=== PATIENT | female | born 1965 | race Caucasian/White ===

== ENCOUNTER 2016-12-10 03:41 | Emergency (ER) | payer OTHER ==
[~2016-12-10] VITALS: Ht 154.9 cm; Wt 83.6 kg
[2016-12-10 03:48] VITALS: BP 168/95; PULSE 71; RESP 18; O2SAT 99
[2016-12-10 04:08] VITALS: BP 154/94; PULSE 69; RESP 17; O2SAT 97
--- NOTE | 2016-12-10 04:13 | ED.REPORT ---
HPI-Headache Date of Service Dec 10, 2016 ED Provider: Dr. Deniz Burciaga MD A 51 year old female with a history of migraines presents to the ED with a headache onset 2 days ago. She reports recently taking ibuprofen for left arm pain and has been experiencing abdominal discomfort, nausea and vomiting since taking the medication. The patient also reports numbness in her left fingertips. She denies any rash, visual disturbances, confusion, slurred speech or neck stiffness. Patient denies any recent head injuries. Nursing Notes Stated Complaint: HEADACHE Chief Complaint: General Complaint Nursing Notes Reviewed: Yes Allergies: Coded Allergies: No Known Allergies (Verified Allergy, Unknown, 12/10/16) Scheduled PRN Aspirin/Acetaminophen/Caffeine (Mwwqcpg-Nnnveaknugkxt-Prqg Tab) 250 Mg-250 Mg- 65 Mg Tablet 2 TAB PO stat PRN PRN migraine Prochlorperazine Maleate (Compazine Suppository) 25 Mg Supp.rect 25 MG RC Q8 PRN PRN For Nausea/Vomiting General Time Seen by MD: 04:12 Chief Complaint Headache Hx Obtained From: Patient Arrived By: Walk-in Sudden in Onset?: No Onset Occurred: 2 days ago Symptom Duration: Since onset Location: : Generalized Quality: Aching Radiation: : Does not radiate Severity: Current: Mild Severity: Maximum: Moderate Associated with: Reports: Nausea, Numbness, Vomiting, Denies: Confusion, Difficulty speaking, Visual disturbance Pertinent Negative: Pt denies other symptoms Recent Healthcare: No recent doctor visit, No recent hospitalization Risk-Headache )( SAH Risk Stratification RF Statements: Risk factors reviewed )( IC Mass Risk Stratification RF Statements: Risk factors reviewed Past Medical History Past Medical History 1. Asthma 2. Cellulitis 3. Migraines Past Surgical History None reported Family History Noncontributory Smoking History Never Smoker Social History Alcohol Use: In recovery Drug Use: Denies drug use Other Social History: Local resident Occupation Fish processing and crab processing Ambulatory Status Independent Review of Systems GI: Reports: Abdominal pain, Nausea, Vomiting Musculoskeletal: Denies: Neck pain Skin: Denies Rash Neurologic: Reports: Headache, Numbness, Denies: Confusion, Slurred speech, Vision change Complete sys rev & neg: except as marked. Physical Exam Initial Vital Signs Vital Signs (First) Date Time Temp Pulse Resp B/P Pulse Ox O2 Delivery O2 Flow Rate FiO2 12/10/16 03:48 36.6 71 18 168/95 99 Room Air Initial VS: Reviewed Extremities: Vascular intact, Neuro intact, No swelling, No tenderness Skin: Warm, Dry, No cyanosis General/Constitutional: Awake, Alert, No acute distress Head / Eyes: Atraumatic, Normocephalic, PERRL, EOMI, No photophobia Neck: Atraumatic, Supple, Full range of motion, Non-tender Neurologic: Oriented X3, Speech NL, No motor deficits, No sensory deficits, CN II - XII intact, Reflexes equal bilat ENT: Atraumatic, Airway patent, Mucous membranes moist, Pharynx NL Right Ear / Mastoid: Positive: Fluid behind TM clear, Tympanic memb retracted, Negative: Tympanic membrane red Left Ear / Mastoid: Positive: Fluid behind TM clear, Tympanic memb retracted, Negative: Tympanic membrane red ENT: TM's congested without signs of infection Respiratory / Chest: Atraumatic, Breath sounds NL, Breath sounds = bilat, No respiratory distress Cardiovascular: Heart rate NL, Regular rhythm, Heart sounds NL Abdomen: Atraumatic, Soft Abnormal Mood/Affect: Positive: Flat affect Abnormal Thinking / Perception: Positive: Tangential thinking Re-Eval/Medical Decision Med Decision/Clinical Course 51-year-old with history of asthma and migraines presents with a migraine now for three days. No other concerning additional symptoms. This one is a stereotypical headache for her. No head impact, no fever, no neurological deficits. Minor tingling is been chronic and intermittent and not related to tonight's headache. Improved after standard cocktail here. She is quite somatically focused and anxious requesting numerous additional elements to exam. No other significant findings than some moderate congestion of her TMs bilaterally, some moderate nasal discharge, and clear lungs. She is discharged in stable condition with an APC prescription, Compazine suppository when necessary, and plan for follow-up with PCP. Re-Evaluation/Progress : Time of Eval: 04:35 )( Patient Status: Condition improved Re-Evaluation/Progress Note: Patient is re-evaluated. Her headache has improved upon recheck. Patient is requesting a ENT exam because of concern for infection. She is informed of her results. The patient understands and agrees with the intended treatment plan. Counseled Regarding: Diagnosis, Need for follow-up, When/why to return to ED Discharge & Departure Impression: Primary Impression: Migraine headache Migraine type: unspecified Status migrainosus presence: without status migrainosus Intractability: not intractable Qualified Code: G43.909 - Migraine, unspecified, not intractable, without status migrainosus Disposition: Home Discharge Condition All VS Reviewed: Yes Condition: Improved Patient Instructions: Migraine Headache (ED) Additional Instructions: Follow-up with your doctor in the office. Begin with an [id number] APC (aspirin/Tylenol/caffeine) preparation for migraine. If needed, you can add a Compazine suppository, which is helpful both for nausea and for migraine directly. Return if you are unable to control your nausea and keep down food and fluids. Referrals: [facility] (PCP) Scribe Attestation Portions of this note were transcribed by Rosa Isela Cunningham. I, Dr. Burciaga personally performed the history, physical exam and medical decision-making; I reviewed and confirmed the accuracy of the information in the transcribed note. copies to: [facility] Deniz Burciaga MD Dec 10, 2016 04:13 ROSA ISELA CUNNINGHAM Dec 10, 2016 04:22
[2016-12-10] MEDS ORDERED: 0.9% Sodium Chloride 1,000 ML IV ONE (04:33)
[2016-12-10] MEDS ORDERED: Ondansetron 2 mg/mL 2 mL Inj IVPUSH ONE (04:35)
[2016-12-10] MEDS ORDERED: Haloperidol 5 mg/mL Inj IVPUSH ONE (04:35)
[2016-12-10] MEDS ORDERED: Dexamethasone 10 mg/mL Inj IVPUSH ONE (04:35)
[2016-12-10 05:06] VITALS: BP 155/93; PULSE 58; RESP 12; O2SAT 99
[2016-12-10] MEDS ORDERED: ASPI-1148 PO (05:22)
[2016-12-10] MEDS ORDERED: PROC25SU30 RC (05:22)
[2016-12-10 05:53] VITALS: BP 138/79; PULSE 63; RESP 17; O2SAT 100
== END 2016-12-10 05:58 | disposition home or self-care (01) ==
LOC: SED 03:41
DX: G43.909 Migraine, unspecified, not intractable, without status migrainosus (principal)
CPT/HCPCS: 96361; 96374; 96375; 99284; J1100; J1200; J1630; J2405; J7030

== ENCOUNTER 2016-12-26 20:06 | Emergency (ER) | payer OTHER ==
[~2016-12-26] VITALS: Ht 154.9 cm; Wt 83.2 kg
[~2016-12-26 20:06] MED LIST: ASPI-1148 PO; PROC25SU30 RC
[2016-12-26 20:21] VITALS: BP 173/118; PULSE 88; RESP 22; O2SAT 98
[2016-12-26 21:27] VITALS: BP 150/96; PULSE 80; RESP 20; O2SAT 96
--- NOTE | 2016-12-26 21:59 | ED.REPORT ---
HPI-Headache Date of Service Dec 26, 2016 ED Provider: Deniz Burciaga MD A 51 year old female with a history of migraines and hypertension presents to the ED complaining of a migraine. The frontal migraine developed this morning and has persisted all day. This has been accompanied by elevated blood pressure , photophobia, nausea and vomiting. She denies bright scotomata, focal weakness or numbness. The pt has noticed increasing frequency in her migraines recently, but also admits to recent back pain that she believes may be related to her symptoms today. She was seen in the ED two weeks ago for similar complaints. Nursing Notes Stated Complaint: SEVERE MIGRAINE Chief Complaint: Headache Nursing Notes Reviewed: Yes Allergies: Coded Allergies: No Known Allergies (Verified Allergy, Unknown, 12/26/16) Scheduled Prochlorperazine Maleate (Compazine) 10 Mg Tablet 10 MG PO TID Scheduled PRN Aspirin/Acetaminophen/Caffeine (Lzgbxlj-Tfiesjgkdqoaw-Hyor Tab) 250 Mg-250 Mg- 65 Mg Tablet 2 TAB PO stat PRN PRN migraine Prochlorperazine Maleate (Compazine Suppository) 25 Mg Supp.rect 25 MG RC Q8 PRN PRN For Nausea/Vomiting General Time Seen by MD: 21:58 Chief Complaint Migraine headache Hx Obtained From: Patient Arrived By: Walk-in Sudden in Onset?: No Onset Occurred: 9 - 12 hours ago Symptom Duration: Since onset Recent Healthcare: Recent doctor visit Similar Sx Previous: Yes Past Medical History Past Medical History 1. Asthma 2. Cellulitis 3. Migraines 4. Anxiety Reports: Hypertension Past Surgical History None reported Family History Noncontributory Smoking History Never Smoker Social History Alcohol Use: In recovery Drug Use: Denies drug use Other Social History: Local resident Occupation Fish processing and crab processing Ambulatory Status Independent Review of Systems Review of Systems Note: elevated blood pressure denies bright scotomata Constitutional: Denies: Fever Eyes: Reports: Photophobia GI: Reports: Nausea, Vomiting Musculoskeletal: Reports: Back pain Skin: Denies Rash Neurologic: Reports: Headache, Denies: Focal weakness, Numbness Complete sys rev & neg: except as marked. Respiratory: Denies: Non-productive cough, Shortness of breath Cardiovascular: Denies: Chest pain Physical Exam Initial Vital Signs Vital Signs (First) Date Time Temp Pulse Resp B/P Pulse Ox O2 Delivery O2 Flow Rate FiO2 12/26/16 20:21 36.5 88 22 173/118 98 Room Air Initial VS: Reviewed General/Constitutional: Awake, Alert Head / Eyes: Atraumatic, Normocephalic, PERRL, EOMI Neck: Atraumatic, Supple, Full range of motion Neurologic: Oriented X3, Speech NL, No motor deficits, No sensory deficits ENT: Atraumatic, Airway patent, Mucous membranes moist Respiratory / Chest: Atraumatic, Breath sounds NL, Breath sounds = bilat, No respiratory distress Cardiovascular: Heart rate NL, Regular rhythm, Heart sounds NL Abdomen: Atraumatic, Soft, Non-tender Skin: Atraumatic, Color NL, No rash, Warm, Dry Psychiatric: Affect NL, Mood NL Back: Atraumatic, Full range of motion Upper Extremity / MS: Atraumatic, Full range of motion Lower Extremity / Pelvis / MS: Atraumatic, Full range of motion Interpretation & Diagnostics Lab Results Interpretation Result Diagram: 12/26/16 2208 12/26/16 2208 Test 12/26/16 22:06 12/26/16 22:08 Hold Purple Top Tube Received (Received) Hold Blue Top Tube Received (Received) Hold Red Top Tube Received (Received) Hold [place] Top Tube Received (Received) White Blood Count 10.8th/mm3 (3.8-10.1) Red Blood Count 4.84mil/mm3 (3.90-5.20) Hemoglobin 14.1g/dL (12.0-15.6) Hematocrit 41.6% (35.0-46.0) Mean Corpuscular Volume 86.0fL (81-100) Mean Corpuscular Hemoglobin 29.1pg (27.0-35.0) Mean Corpuscular Hemoglobin Concent 33.9% (32.0-37.0) Red Cell Distribution Width 13.4% (12.3-15.4) Platelet Count 283bil/L (150-400) Neutrophils (%) (Auto) 82.7% (40-74) Lymphocytes (%) (Auto) 10.3% (14-46) Monocytes (%) (Auto) 5.9% (4-12) Eosinophils (%) (Auto) 0.4% (0-5) Basophils (%) (Auto) 0.2% (0-3) Erythrocyte Sedimentation Rate 8mm/hr (0-40) Sodium Level 137mEq/L (134-144) Potassium Level 4.3mEq/L (3.5-5.2) Chloride Level 102mEq/L (97-108) Carbon Dioxide Level 23mmol/L (18-29) Blood Urea Nitrogen 11mg/dL (6-24) Creatinine 0.53mg/dL (0.57-1.00) Estimat Glomerular Filtration Rate 174mL/min (>59) Glucose Level 124mg/dL (60-99) Calcium Level 8.7mg/dL (8.5-10.1) C-Reactive Protein 0.3mg/dL (0.0-0.5) Re-Eval/Medical Decision Med Decision/Clinical Course 51-year-old with recurrent migraines and some increase in frequency recently, improved after standard meds here. Discharged with Compazine when necessary for home use. Follow up with PCP. Some investigation of possible triggers would be reasonable. Prophylactic medicine may be reasonable. She and her mother are both quite resistant to taking regular medications and she may or may not cooperate with efforts to control these prospectively. Source of Hx: Old records Re-Evaluation/Progress : Time of Eval: 01:30 Re-Evaluation/Progress Note: Pt rechecked, who is resting comfortably. The diagnosis and plan for discharge are discussed. The pt understands and agrees with the plan. All questions are addressed at this time. Counseled Regarding: Diagnosis, Lab results, Need for follow-up, When/why to return to ED Discharge & Departure Impression: Primary Impression: Migraine Migraine type: unspecified Status migrainosus presence: with status migrainosus Intractability: not intractable Qualified Code: G43.901 - Migraine, unspecified, not intractable, with status migrainosus Disposition: Home Discharge Condition All VS Reviewed: Yes Condition: Stable Patient Instructions: Migraine Headache (ED) Additional Instructions: Your current run of headaches may have a trigger. This could be neck or back pain, stress, dental infection, sinus infection, or numerous other triggers. May be helpful to decide what is the trigger in order to reduce the frequency. It is possible to prevent migraines, and this is often more easily done than treating them after the fact. If you get a migraine. You can use some [id number]-[id number] migraine medicine such as Advil migraine, especially if you take it as soon as possible at the onset of the headache. Additional medicine can be helpful, including Compazine. If you have a headache that continues after the Advil migraine, take a Compazine tablet. This also helps to treat the nausea associated. If that is unsuccessful, return here any time. Follow-up with your doctor in the office. Referrals: [facility] (PCP) Scribe Attestation Portions of this note were transcribed by Jane Castellano. I, Dr. Burciaga personally performed the history, physical exam and medical decision-making; I reviewed and confirmed the accuracy of the information in the transcribed note. copies to: [facility] Christopher W MD Dec 26, 2016 21:58 JANE CASTELLANO Dec 26, 2016 22:05
[2016-12-26] MEDS ORDERED: 0.9% Sodium Chloride 1,000 ML IV ONE ×2 (22:03→22:05)
[2016-12-26] MEDS ORDERED: Haloperidol 5 mg/mL Inj IVPUSH ONE (22:05)
[2016-12-26] MEDS ORDERED: Dexamethasone 10 mg/mL Inj IVPUSH ONE (22:05)
[2016-12-26 22:11] LABS: BASOPHILS % (AUTO) 0.2 % (0-3); EOSINOPHILS % (AUTO) 0.4 % (0-5); MONOCYTES % (AUTO) 5.9 % (4-12); Mean Corpuscular Hemoglobin 29.1 pg (27.0-35.0); NEUTROPHILS % (AUTO) 82.7 % (40-74); Platelet Count 283 bil/L (150-400)
[2016-12-26 22:38] LABS: ERYTHROCYTE SEDIMENTATION RATE 8 mm/hr (0-40)
[2016-12-26 23:40] VITALS: BP 147/75; PULSE 71; RESP 18; O2SAT 96
[2016-12-27] MEDS ORDERED: PROC-4 PO (01:26)
[2016-12-27 01:36] VITALS: BP 138/75; PULSE 76; RESP 16; O2SAT 96
== END 2016-12-27 01:37 | disposition home or self-care (01) ==
LOC: SED 20:06
DX: G43.901 Migraine, unspecified, not intractable, with status migrainosus (principal); I10 Essential (primary) hypertension; J45.909 Unspecified asthma, uncomplicated; F41.9 Anxiety disorder, unspecified
CPT/HCPCS: 36415; 80048; 85025; 85651; 86140; 96361; 96374; 96375; 99284; J1100; J1200; J1630; J1885; J7030